=== PATIENT | female | born 1965 ===

== ENCOUNTER 2025-03-29 08:57 | Outpatient (CLI) | payer OTHER, BC, SELFPAY ==
--- NOTE | 2025-03-30 11:39 | PDOC.EEG ---
Neurology EEG EEG: [facility] Department of Neurology EEG REPORT Date of Recording: Interpreting Physician: Dr. Abby Montes PCP/Referring Provider: Bryan Dudley NP Reason for study: Janneth Busch is a 59 year-old with prior concussion with persistent memory changes and word finding changes, spells of slowed cognition. Current Medications: Chlorathaladone 50 mg qd didofenac potassium 50 mg Gabapentin 100 mg qhs Escitalopram 210 mg qhs Mg++ 500 mg qd K+ 20 mequiv qhs Tylenol 1000mg q6prn METHODS: A 21 channel digitized electroencephalogram was performed in the [facility]. The 10/20 international system of electrode placement was used and bipolar and referential electrode montages were recorded. In addition to EEG the patient was monitored for EKG and lateral/vertical eye movements. Activation procedures of photic stimulation and hyperventilation were performed if applicable. Video was used during activation procedures and during events where applicable. The duration of the recording was 30 minutes. DESCRIPTION OF EEG: The patient was noted to be awake only during the recording. During maximal wakefulness a 10-Hz posterior background rhythm was present which was well-modulated, symmetrical, reactive to eye opening, and of moderate voltage. With eye opening the background activity changed to a low voltage mixture of alpha, beta, and occasional theta range frequencies. Faster frequencies were present in the bilateral anterior head regions. There was a normal anterior-posterior voltage gradient. No drowsiness or stage II sleep was recorded. Activating Procedures: Photic stimulation was performed which produced a symmetrical posterior driving response at various flash frequencies. Hyperventilation was performed with moderate effort and produced no physiological slowing of the background. EKG: EKG revealed normal sinus rhythm. INTERPRETATION: This EEG is normal during the awake state as well as during photic stimulation and hyperventilation. PRIOR EEG: none CLINICAL CORRELATION: No focal regions of cerebral dysfunction or epileptiform activity was present. No sleep was recorded during the study which reduces the sensitivity of the exam. If seizure remains a part of the differential, consider a repeat sleep-deprived EEG or overnight ambulatory EEG. Epilepsy remains a clinical diagnosis and a normal EEG does not rule out epilepsy. Clinical correlation is advised. Abby Montes MD Date of service: 03/29/25
== END 2025-03-29 08:58 | disposition home or self-care (01) ==
LOC: RT 04-14 08:57
PROVIDERS: Visit Provider Nurse Practitioner Primary Care
DX: S06.9X0A Unspecified intracranial injury without loss of consciousness, initial encounter (principal); R41.3 Other amnesia; R47.01 Aphasia; X58.XXXA Exposure to other specified factors, initial encounter
CPT/HCPCS: 95816